=== PATIENT | female | born 1960 | race Caucasian/White ===

== ENCOUNTER 2016-10-11 00:21 | Emergency (ER) | payer OTHER ==
[2016-10-11 00:31] VITALS: BP 122/74; PULSE 83; RESP 18; TEMP 97.9; O2SAT 98
--- NOTE | 2016-10-11 00:41 | EDPHY ---
H & P Time Seen by Provider: 10/11/16 00:35 HPI/ROS: CHIEF COMPLAINT: "Possible shingles" x3 days HISTORY OF PRESENT ILLNESS: 56-year-old immunocompetent female complaining of possible zoster to the right side at the level of the umbilicus for the past 3 days, progressive. No abdominal pain. No back or flank pain. No fever no chills. PHYSICAL EXAM (Prior to examination, patient consented to physical exam, hands were washed and my usual and customary physical exam procedures followed) 1) GENERAL: Well-developed, well-nourished, alert and oriented. Appears to be in no acute distress. 2) HEAD: Normocephalic 3) HEENT: sclera anicteric 4) LUNGS: Breathing comfortably. 5) SKIN: at the approximate T10 level she has vesicular lesions follow a dermatomal distribution on the right side consistent with zoster [6) abdomen: Nontender no guarding no rebound Smoking Status: Never smoked Constitutional: Initial Vital Signs Temperature (C) 36.6 C 10/11/16 00:25 Heart Rate 83 10/11/16 00:25 Respiratory Rate 18 10/11/16 00:25 Blood Pressure 122/74 H 10/11/16 00:25 O2 Sat (%) 98 10/11/16 00:25 O2 Delivery Mode Room Air Allergies/Adverse Reactions: Sulfa (Sulfonamide Antibiotics) Allergy (Verified 07/24/13 17:33) Home Medications: Medication Instructions Recorded Lisinopril/Hydrochlorothiazide 10/11/16 [Lisinopril-Hctz 10-12.5 mg Tab] Potassium Chlorate 10/11/16 Valacyclovir HCl [Valtrex] 1,000 mg PO TID #21 tab 10/11/16 MDM/Departure - MDM ED Course/Re-evaluation: High clinical suspicion for zoster. Will start the patient on antivirals. We discussed long-term complications of zoster including but not limited to post herpetic neuralgia. Usual and customary zoster precautions instructions provided. - Depart Disposition: Home, Routine, Self-Care Clinical Impression: Zoster Qualifiers: Herpes zoster complications: disseminated zoster Qualified Code(s): B02.7 - Disseminated zoster Condition: Good Instructions: Shingles (ED) Additional Instructions: Keep the area covered. Do not touch the area. Prescriptions: Valacyclovir HCl [Valtrex] 1,000 mg PO TID #21 tab Referrals: Radhika Vigil MD [Primary Care Provider] - 2-3 days, call for appt.
[2016-10-11] MEDS ORDERED: valACYclovir 500 MG TAB PO ONE (00:44)
== END 2016-10-11 01:14 | disposition home or self-care (01) ==
DX: B02.7 Disseminated zoster (principal)

== ENCOUNTER → 2017-11-09 | Outpatient (CLI) | payer OTHER | LOC: BMCIMAGING 12:04 | PROVIDERS: ATTEND Family Medicine | DX: Z12.31 Encounter for screening mammogram for malignant neoplasm of breast (principal) ==